=== PATIENT | male | born 1990 | race Hispanic/Latino ===

== ENCOUNTER 2017-05-07 19:37 | Emergency (ER) | payer SELFPAY ==
[~2017-05-07 19:37] MED LIST: Fluorescein Opthalmic Strip ONE
[2017-05-07] MEDS ORDERED: Tetracaine 0.5% OPHTH SOLN/PF 4 ML BOT ONE (19:54)
[2017-05-07] MEDS ORDERED: Erythromycin Base 0.5% Ophth Oint 3.5 gm Tube ONE ×2 (19:54→19:57)
[2017-05-07] MEDS ORDERED: HYDROcodone/Acetaminophen 5/325 mg Tablet ONE (20:23)
[2017-05-07] MEDS ORDERED: Ibuprofen 800 MG TAB ONE (20:23)
== END 2017-05-07 20:25 | disposition home or self-care (01) ==
LOC: MADERS 19:37
DX: T15.91XA Foreign body on external eye, part unspecified, right eye, initial encounter (principal); I10 Essential (primary) hypertension; Z87.891 Personal history of nicotine dependence; Z79.899 Other long term (current) drug therapy
CPT/HCPCS: 99283

== ENCOUNTER 2018-08-24 20:31 | Emergency (ER) | payer BC, SELFPAY | END 2018-08-24 20:59 | disposition home or self-care (01) | LOC: MADERS 20:31 | DX: R07.89 Other chest pain (principal); I10 Essential (primary) hypertension; Z87.891 Personal history of nicotine dependence; Z79.899 Other long term (current) drug therapy | CPT/HCPCS: 99281 ==

== ENCOUNTER 2019-07-10 20:38 | Emergency (ER) | payer BC ==
[2019-07-10] MEDS ORDERED: Ibuprofen 800 MG TAB ONE (21:02)
--- NOTE | 2019-07-10 21:28 | RAD ---
RIGHT KNEE FOUR VIEWS: 07/10/19 HISTORY: Injury, right knee pain. FINDINGS/IMPRESSION: No acute fracture or dislocation is identified. POS: [facility]
== END 2019-07-10 21:55 | disposition home or self-care (01) ==
LOC: MADERS 20:38
DX: S83.91XA Sprain of unspecified site of right knee, initial encounter (principal); I10 Essential (primary) hypertension; Z87.891 Personal history of nicotine dependence; Z79.899 Other long term (current) drug therapy; X50.9XXA Other and unspecified overexertion or strenuous movements or postures, initial encounter

== ENCOUNTER 2024-03-26 13:18 | Emergency (ER) | payer SELFPAY ==
[2024-03-26] MEDS ORDERED: Ketorolac Tromethamine 60 MG/2 ML VIAL ONE (13:43)
[2024-03-26] MEDS ORDERED: Mag-Al Plus 1200/1200/120 MG (30 mL) UDCUP ONE (13:44)
[2024-03-26] MEDS ORDERED: Lidocaine 2% Viscous 100 ML BOTTLE ONE (13:45)
[2024-03-26] MEDS ORDERED: Dexamethasone 10 MG/ML VIAL ONE (13:48)
[2024-03-26] MEDS ORDERED: Amoxicillin/Potassium Clav 875 MG TAB ONE (14:15)
== END 2024-03-26 15:17 | disposition home or self-care (01) ==
LOC: MADERS 13:18
DX: J02.0 Streptococcal pharyngitis (principal)
CPT/HCPCS: 87430; 96372; 99283; J1100; J1885

== ENCOUNTER 2024-08-30 08:11 | Emergency (ER) | payer SELFPAY ==
[2024-08-30] MEDS ORDERED: Tetracaine 0.5% PF 4 ML BOT ONE (08:19)
[2024-08-30] MEDS ORDERED: Fluorescein Opthalmic Strip ONE (08:20)
[2024-08-30] MEDS ORDERED: HYDROcodone/Acetaminophen 5/325 mg Tablet ONE (08:45)
[2024-08-30] MEDS ORDERED: Ketorolac Tromethamine 60 MG/2 ML VIAL ONE (08:46)
== END 2024-08-30 09:12 | disposition home or self-care (01) ==
LOC: MADERS 08:11
DX: S05.01XA Injury of conjunctiva and corneal abrasion without foreign body, right eye, initial encounter (principal); I10 Essential (primary) hypertension; X50.9XXA Other and unspecified overexertion or strenuous movements or postures, initial encounter
CPT/HCPCS: 96372; 99283; J1885